=== PATIENT | female | born 1980 | race Caucasian/White ===

== ENCOUNTER → 2017-01-04 | Outpatient (CLI) | payer MEDICAID ==
--- NOTE | 2017-01-04 08:48 | CT ---
EXAMINATION TYPE: CT abdomen pelvis w con DATE OF EXAM: 01/04/2017 HISTORY: RLQ pain and swelling, worse after eating. CT DLP: 1053mGycm Automated Exposure Control for Dose Reduction was Utilized. CONTRAST: CT scan of the abdomen and pelvis is performed with oral and with IV Contrast, patient injected with 100 mL of Omnipaque 300. COMPARISON: CT abdomen July 02, 2014 FINDINGS: LUNG BASES: No significant abnormality is appreciated. LIVER/GB: Cholecystectomy clips are redemonstrated. PANCREAS: Pancreas is diffusely prominent without surrounding inflammatory change or abnormal enhance ment, unchanged in appearance from prior study. SPLEEN: No significant abnormality is seen. ADRENALS: No significant abnormality is seen. KIDNEYS: No significant abnormality is seen. BOWEL: Oral contrast reaches level of the rectum. There is no suspicious small or large bowel dilatat ion. There is low lying cecum. Appendix is within normal limits in the right pelvis seen best on aby nal image 40. Terminal ileum is within normal limits. There is mild wall thickening of ileal loop in the right pelvis near level of right ovary seen best coronal image 47 and axial image 70, focal enter itis at this level needs to BE considered. Occasional diverticula in distal colon is present without CT evidence for acute diverticulitis. UTERUS/ADNEXA: Multiple pelvic phleboliths are redemonstrated. Uterus is anteverted in shape and with in normal limits in size. There is some prominence of the tissue at level of the cervix. Correlate wi th direct pelvic physical exam and recent Pap smear. Both ovaries are present and not suspiciously en larged. There is cystic change in the right ovary noted. LYMPH NODES: No greater than 1cm abdominal or pelvic lymph nodes are appreciated. There are prominent but subcentimeter retroperitoneal lymph nodes in the aortocaval region redemonstrated felt stable. OSSEOUS STRUCTURES: There is mild disc space narrowing with small posterior disc herniation L5-S1 lev el. OTHER: No significant additional abnormality is seen. IMPRESSION: No CT evidence for acute appendicitis. Possible small focal enteritis distal ileal loop r ight upper pelvis, differential includes infectious and/or inflammatory etiologies.
== END | disposition home or self-care (01) ==
LOC: RADCTMAIN 07:55
PROVIDERS: ATTEND Surgery
DX: R10.9 Unspecified abdominal pain (principal)
CPT/HCPCS: 74177; Q9967

== ENCOUNTER → 2017-01-15 | Outpatient (CLI) | payer MEDICAID ==
--- NOTE | 2017-01-15 11:55 | US ---
EXAMINATION TYPE: US carotid duplex BILAT DATE OF EXAM: 01/15/2017 COMPARISON: NONE CLINICAL HISTORY: Unilateral Swelling R22.0. history of thoracic outlet syndrome with surgery one yea r ago, patient having left neck swellling. EXAM MEASUREMENTS: RIGHT: Peak Systolic Velocity (PSV) cm/sec ----- Right CCA: 73.8 ----- Right ICA: 103.0 ----- Right ECA: 86.2 ICA/CCA ratio: 1.4 RIGHT: End Diastole cm/sec ----- Right CCA: 28.4 ----- Right ICA: 62.9 ----- Right ECA: 28.0 LEFT: Peak Systolic Velocity (PSV) cm/sec ----- Left CCA: 72.1 ----- Left ICA: 99.6 ----- Left ECA: 85.3 ICA/CCA ratio: 1.4 LEFT: End Diastole cm/sec ----- Left CCA: 31.4 ----- Left ICA: 54.5 ----- Left ECA: 27.0 VERTEBRALS (direction of flow): Right Vertebral: Antegrade Left Vertebral: Antegrade No significant stenosis seen, no elevated velocities. Also scanned left IJV, which is patent and comp ressible. Grayscale images show no significant focal plaque at carotid bulb level bilaterally. IMPRESSION: No hemodynamically significant stenosis is seen in either internal carotid artery.
== END | disposition home or self-care (01) ==
LOC: RADUSWWP 10:43
PROVIDERS: ATTEND Surgery
DX: R22.0 Localized swelling, mass and lump, head (principal); R53.1 Weakness; Z98.890 Other specified postprocedural states
CPT/HCPCS: 93880

== ENCOUNTER → 2017-01-31 | Outpatient (CLI) | payer MEDICAID | END | disposition home or self-care (01) | LOC: LABWHC1 07:01 | DX: Z53.9 Procedure and treatment not carried out, unspecified reason (principal); D35.00 Benign neoplasm of unspecified adrenal gland; E55.9 Vitamin D deficiency, unspecified; I10 Essential (primary) hypertension; D51.0 Vitamin B12 deficiency anemia due to intrinsic factor deficiency; E06.3 Autoimmune thyroiditis; E78.00 Pure hypercholesterolemia, unspecified ==

== ENCOUNTER → 2017-02-17 | Outpatient (CLI) | payer MEDICAID ==
[2017-02-17 09:47] LABS: ALT 37 U/L (9-52); Anion Gap 11 mmol/L; Blood Urea Nitrogen 13 mg/dL (7-17); Calcium 9.5 mg/dL (8.4-10.2); Carbon Dioxide 25 mmol/L (22-30); Chloride 106 mmol/L (98-107); Cholesterol 195 mg/dL (<200); HDL Cholesterol 47 mg/dL (40-60); Iron 106 ug/dL (37-170); Non-African American GFR(MDRD) >60 (>60 ml/min/1.73 sqM); Sodium 142 mmol/L (137-145); Triglycerides 137 mg/dL (<150)
[2017-02-17 09:58] LABS: Total Iron Binding Capacity 324 ug/dL (265-497)
[2017-02-17 10:37] LABS: Vitamin B12 385 pg/mL (239-931)
[2017-02-19 14:13] LABS: Thyroid Stim Immun Quant <0.10 IU/L (<0.10)
== END | disposition home or self-care (01) ==
LOC: LABWHC1 07:20
PROVIDERS: ATTEND Internal Medicine Endocrinology, Diabetes & Metabolism
DX: D35.00 Benign neoplasm of unspecified adrenal gland (principal); E03.9 Hypothyroidism, unspecified; I10 Essential (primary) hypertension; D51.0 Vitamin B12 deficiency anemia due to intrinsic factor deficiency; E06.3 Autoimmune thyroiditis; E78.00 Pure hypercholesterolemia, unspecified
CPT/HCPCS: 36415; 80051; 80061; 82088; 82306; 82310; 82565; 82607; 82728; 83540; 83550; 83835; 84244; 84439; 84443; 84445; 84460; 84481; 84520; 86376

== ENCOUNTER → 2017-12-05 | Outpatient (CLI) | payer MEDICAID ==
[2017-12-05 17:51] LABS: HCT 38.6 % (34.0-46.0); HGB 13.1 gm/dL (11.4-16.0); MCH 30.3 pg (25.0-35.0); MCHC 33.9 g/dL (31.0-37.0); MCV 89.4 fL (80.0-100.0); Mean Platelet Volume 6.9; Platelet Count 292 k/uL (150-450); RBC 4.31 m/uL (3.80-5.40); RDW 12.7 % (11.5-15.5); WBC 7.2 k/uL (3.8-10.6)
[2017-12-05 17:59] LABS: Anion Gap 13 mmol/L; Blood Urea Nitrogen 18 mg/dL (7-17); Carbon Dioxide 25 mmol/L (22-30); Chloride 103 mmol/L (98-107); Glucose 81 mg/dL (74-99); Potassium 4.2 mmol/L (3.5-5.1); Sodium 141 mmol/L (137-145)
[2017-12-05 18:14] LABS: Eosinophils # (M) 0.14 k/uL (0-0.7); Lymphocytes # (M) 2.95 k/uL (1.0-4.8); Monocytes # (M) 0.43 k/uL (0-1.0); Neutrophils # (M) 3.67 k/uL (1.3-7.7); Neutrophils % (M) 51 %; Nucleated Red Blood Cells 0 /100 WBC (0-0); Polychromasia Present; Total Cells Counted 100
== END | disposition home or self-care (01) ==
LOC: LABPAT 16:18
PROVIDERS: ATTEND Obstetrics & Gynecology
DX: Z01.812 Encounter for preprocedural laboratory examination (principal); E80.20 Unspecified porphyria
CPT/HCPCS: 36415; 80051; 82565; 82947; 84520; 85025; 86850; 86900; 86901; 87086

== ENCOUNTER 2017-12-10 05:52 | Observation (INO) | payer MEDICAID ==
[2017-12-05 16:36] VITALS: BMI 24.3
--- NOTE | 2017-12-06 15:26 | HP ---
HISTORY AND PHYSICAL DATE OF PROCEDURE: 12/10/2017. HISTORY: This is a 37-year-old 3, para 1-1-1-2 woman with a history significant for acute porphyria. Over the past year she has had several significant flares of her acute porphyria which include malignant hypertension, abdominal pain, and confusion. She has a significant hormonal component and her medical specialists believe that she would benefit from a hysterectomy with bilateral salpingo-oophorectomy. There is a family history of porphyria and her mother did have significant improvement in her symptoms following hysterectomy. After careful consideration, she would like to proceed with robotic assisted laparoscopic assisted vaginal hysterectomy and bilateral salpingo-oophorectomy. ALLERGIES: None. 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 PAST MEDICAL HISTORY: Hypothyroidism and acute porphyria. PAST SURGICAL HISTORY: Abdominoplasty 2009, breast biopsy 2011, cholecystectomy 2002, endometrial ablation procedure and tubal ligation in 2012. 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 She has had a tubal ligation. SOCIAL HISTORY: She is . Negative for tobacco, alcohol, or drug use. 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 FAMILY HISTORY: Significant for porphyria in her mother as well as diabetes in her mother and father, grandmother and aunt. Aunt with melanoma. Mother, father, and grandparents with hypertension. REVIEW OF SYSTEMS: Negative for recent weight gain, weight loss, fevers, chills, headaches, visual changes, nausea, vomiting, diarrhea, constipation, abdominal or pelvic pain. PHYSICAL EXAM: Blood pressure 130/80, heart rate 71, weight 161 pounds, height 5 feet 6 inches and 3/4. HEENT exam is unremarkable with no palpable lymphadenopathy or thyromegaly. Lungs are clear to auscultation bilaterally. Heart is of regular rate and rhythm without murmur. Abdomen is soft and nontender with no rebound, no guarding and no flank pain. On pelvic examination done previously is significant for normal female external genitalia without lesions or irritation. The cervix is multiparous and she has a grade 2 cystocele and rectocele. Uterus is freely mobile and not enlarged. No adnexal abnormalities appreciated. ASSESSMENT: A 37-year-old 3, para 2 woman with history of acute porphyria exacerbated by hormonal cycles. She is scheduled to undergo a robotic assisted laparoscopic assisted vaginal hysterectomy with bilateral salpingo-oophorectomy. Alternatives, risks and benefits of this procedure have been reviewed with the patient in the office setting in detail. Risks include, but are not limited to bleeding, transfusion, infection, damage to bowel, bladder, ureters and/or other intraabdominal or pelvic structures. She understands there is a risk associated with the anesthetic. She understands risk of DVT or PE. Hospitalist will be consulted to follow along her case and monitor closely for a sequelae of her acute porphyria which can include malignant hypertension. She is scheduled to undergo the above-named procedure on in 12/10/2017. MMODL / IJN: [id number] /
[~2017-12-10 05:52] MED LIST: DEXAMETHASONE SOD PHOSPHATE 10 MG/ML 1 ML VIAL IV ONE; MIDAZOLAM 2 MG/2 ML VIAL IV PRN; ONDANSETRON 4 MG/2 ML VIAL IVP ONE; SCOPOLAMINE 1.5MG/72HR PATCH TRANSDERM ONE
[2017-12-10] MEDS ORDERED: ceFAZolin IN SWFI 2 GM/20 ML SYRINGE IVP ONE (06:00)
[2017-12-10] MEDS: LACTATED RINGERS 1,000 ML IV SCH (06:46)
[2017-12-10] MEDS ORDERED: LIDOCAINE 1% 20 ML VIAL (10MG/ML) FOR IV START INTRADERMA ONE ×2 (06:47→06:48)
[2017-12-10] MEDS: DEXTROSE 5%-0.45% NACL 1,000 ML IV ONE ×2 (07:22→12:21)
[2017-12-10] MEDS ORDERED: DEXTROSE 5%-0.45% NACL 1,000 ML IV ONE (07:23)
[2017-12-10] MEDS ORDERED: ROCURONIUM BROMIDE 10 MG/ML 10 ML VIAL IV ONE (07:30)
[2017-12-10] MEDS ORDERED: NEOSTIGMINE 1 MG/ML 10 ML VIAL ONE (07:30)
[2017-12-10] MEDS ORDERED: MIDAZOLAM 2 MG/2 ML VIAL ONE (07:30)
[2017-12-10] MEDS ORDERED: ePHEDrine SULFATE/0.9% NACL/PF 50 MG/5 ML SYRINGE IV ONE (07:30)
[2017-12-10] MEDS ORDERED: LIDOCAINE 1% INJ 10MG/ML (20 ML MDV) ONE (07:30)
[2017-12-10] MEDS ORDERED: PROPOFOL 10 MG/ML 20 ML VIAL IV ONE (07:30)
[2017-12-10] MEDS ORDERED: GLYCOPYRROLATE 0.2 MG/ML 2 ML VIAL ONE (07:30)
[2017-12-10] MEDS ORDERED: fentaNYL (PF) 50 MCG/ML 2 ML AMP ONE (07:30)
[2017-12-10] MEDS ORDERED: BUPIVACAINE (PF) 0.5% 30 ML VIAL SQ ONE ×2 (08:04)
--- NOTE | 2017-12-10 09:57 | P.OP ---
Date of Procedure: 12/10/17 Preoperative Diagnosis: Acute porphyria Postoperative Diagnosis: Acute porphyria Right paratubal cyst Procedure(s) Performed: Robotic-assisted laparoscopic assisted vaginal hysterectomy with bilateral salpingo-oophorectomy and cystoscopy Anesthesia: SHARRON Surgeon: Elizabeth Pace Can Dragger #1: Bonita Valenzuela Estimated Blood Loss (ml): 25 IV fluids (ml): 1,150 Urine output (ml): 400 Pathology: other (Uterus, bilateral ovaries and fallopian tubes) Condition: stable Disposition: PACU Indications for Procedure: Acute porphyria with the cyclic, hormone mediated exacerbations. Operative Findings: Uterus with anterior subserosal fibroid. Approximate 3 cm simple right paratubal cyst. Bilateral fallopian tubes and ovaries otherwise grossly normal. Intra-abdominal inspection grossly normal. Normal appendix. Description of Procedure: After the patient and her family members were met in the preoperative holding area and all questions were answered, she was taken to the operating room where anesthetic was administered without incident. She was in positioned, prepped and draped in the dorsal lithotomy position. Adorno catheter was placed in the vagina. Speculum was placed in the vagina and the cervix was grasped anteriorly with single-tooth tenaculum. Uterus was sounded to 9 cm. The cervix was then sequentially dilated to allow for insertion of the uterine manipulator. This was inserted per product protocol and the balloon was inflated with approximately 8 mL of air. Attention was then turned to the abdomen. Gloves were changed. The anterior abdominal wall was elevated and a 7 mm supraumbilical skin incision was made. Varies needle was inserted without difficulty and saline drop test indicated intraperitoneal placement. Initial filling pressure was 5 mm. The abdomen was insufflated to a total filling pressure of 15 mm with CO2 gas. Varies needle was removed and the optical trocar was then used to introduce the camera under direct visualization. Camera was inserted without difficulty and the patient was placed in steep Trendelenburg. The bowel was swept out of the pelvis in the pelvis was inspected and the above findings were noted. Under direct visualization the left and right 7 mm da Lizett ports were placed as well as a 10 mm right upper quadrant clothing sales assistant port. The da Lizett device was then docked without difficulty and instruments were introduced. Arm 1 had monopolar mariela and arm 2 had bipolar [place] graspers. Robotic assistance portion of the procedure then was initiated. The right fallopian tube was grasped. There was a right paratubal cyst noted. The right infundibular pelvic ligament was identified as was the course of the right ureter. The right IP was then sequentially cauterized and cut. The right round ligament was then sequentially cauterized and cut. The anterior leaf of the broad ligament was then entered and incised anteriorly to the level of the bladder. The uterine vasculature was then skeletonized. This was sequentially cauterized. Attention was then turned to the left side. Similarly the left infundibulopelvic ligament and course of the left ureter were identified. The left infundibulopelvic ligament was sequentially cauterized and cut. The left round ligament was sequentially cauterized and cut. The anterior leaf of the broad ligament was incised to meet with the previous incision from the right side. The bladder was then gently and bluntly dissected away anteriorly. The left uterine vasculature was somewhat tortuous however was cauterized and cut. The colpotomy was then made anteriorly and carried around initially to the right. At this point there was some difficulty with visualization secondary to loss of pneumothorax this was addressed with improvement of visualization. The colpotomy was then extended circumferentially allowing for delivery of the uterus into the vagina. There was a portion of the cervix that remains anteriorly and this was grasped and removed using the electrocautery. That was also removed through the vagina. The vaginal cuff was then inspected. Instruments were exchanged and the grasper and needle interstate bus driver were introduced. Stratus 6-0 Vicryl self locking suture was utilized to close the cuff in a running fashion. The cuff was copiously suction irrigated. FloSeal was placed prophylactically along the suture line for additional hemostasis. The right and left IP surgical sites were inspected and noted to be hemostatic. Attention was then turned to the cystoscopy. The 30 diagnostic cystoscope was introduced after removal of the Adorno catheter. No blood or suture material was noted in the bladder. The right and left ureteral orifices were easily visualized and noted to be actively spilling urine bilaterally. Cystoscope was removed and the Adorno catheter was replaced. Vaginal cuff was inspected and no active bleeding was noted. The robot was undocked from the patient and the abdomen was desufflated of CO2 gas. Ports were removed. Skin was closed at the 4 port sites using 4-0 Vicryl suture in a subcuticular fashion. Marcaine was infused in each of the incision sites. Dressings were applied. All counts reported to me as correct by the operating room staff and the patient was awoken from anesthetic and transferred to the recovery area in good condition.
[2017-12-10] MEDS: fentaNYL (PF) 50 MCG/ML 2 ML AMP IV PRN ×4 (10:30→11:00)
[2017-12-10] MEDS ORDERED: ONDANSETRON 4 MG/2 ML VIAL IVP ONE (11:05)
[2017-12-10] MEDS ORDERED: ONDANSETRON 4 MG/2 ML VIAL IVP PRN (11:33)
[2017-12-10] MEDS ORDERED: ACETAMINOPHEN IV (For NPO) 1,000 MG in EMPTY BAG 1 BAG IVPB ONE (11:33)
[2017-12-10] MEDS ORDERED: IBUPROFEN 600 MG TAB PO PRN (11:33)
[2017-12-10] MEDS ORDERED: Acetaminophen-Codeine 300-30mg TAB PO PRN ×2 (11:33)
[2017-12-10] MEDS ORDERED: SIMETHICONE 80 MG CHEWABLE PO PRN (11:33)
[2017-12-10] MEDS ORDERED: SENNOSIDES-DOCUSATE SODIUM 1 EACH TAB PO PRN (11:33)
[2017-12-10] MEDS ORDERED: ACETAMINOPHEN IV (For NPO) 1,000 MG in EMPTY BAG 1 BAG IVPB PRN (11:57)
[2017-12-10] MEDS: METOCLOPRAMIDE 5 MG/ML 2 ML VIAL IVP PRN ×2 (12:22→18:26)
[2017-12-10] MEDS: KETOROLAC 30 MG/ML 1 ML VIAL IVP PRN ×2 (14:10→19:58)
[2017-12-10] MEDS ORDERED: THYROID, PORK 30 MG TAB PO SCH (15:00)
[2017-12-10] MEDS: diphenhydrAMINE 50 MG/ML 1 ML VIAL IVP PRN (19:00)
[2017-12-10 20:17] VITALS: RESP 16
[2017-12-10] MEDS: DEXTROSE 5%-0.9% NACL 1,000 ML IV SCH ×2 (20:19→23:27)
[2017-12-10 23:19] VITALS: TEMP 99.1
[2017-12-11] MEDS: diphenhydrAMINE 50 MG/ML 1 ML VIAL IVP PRN (00:20)
[2017-12-11] MEDS ORDERED: THYROID, PORK 30 MG TAB PO SCH (06:30)
[2017-12-11 08:13] LABS: Basophils % (A) 0 %; Eosinophils % (A) 0 %; HCT 38.5 % (34.0-46.0); HGB 12.5 gm/dL (11.4-16.0); Lymphocytes # (A) 1.8 k/uL (1.0-4.8); Lymphocytes % (A) 13 %; MCH 29.9 pg (25.0-35.0); MCHC 32.4 g/dL (31.0-37.0); MCV 92.5 fL (80.0-100.0); Monocytes # (A) 1.3 k/uL (0-1.0); Monocytes % (A) 10 %; Neutrophils # (A) 9.8 k/uL (1.3-7.7); Neutrophils % (A) 74 %; Platelet Count 269 k/uL (150-450); RBC 4.16 m/uL (3.80-5.40); WBC 13.3 k/uL (3.8-10.6)
--- NOTE | 2017-12-11 08:42 | P.DS ---
Providers Date of admission: 12/10/17 19:47 Expected date of discharge: 12/11/17 Attending physician: Elizabeth aPce Primary care physician: Stated None - Discharge Diagnosis(es) (1) Acute intermittent porphyria Current Visit: Yes Status: Acute (2) Fibroid uterus Current Visit: Yes Status: Acute (3) Paratubal cyst Current Visit: Yes Status: Acute Hospital Course: This is a 37-year-old woman with a history of acute porphyria with hormonal exacerbation. She was admitted for definitive surgical management. She underwent a robotic-assisted laparoscopic assisted vaginal hysterectomy with bilateral salpingo-oophorectomy and cystoscopy. Findings at the time of surgery were remarkable for a small anterior fundal uterine fibroid and an approximately 3 cm simple right paratubal cyst. Please see the operative report for details. Initially her pain was managed with IV from which transition to oral Motrin. By the evening of postoperative day 0 her Adorno catheter was removed and she was able to ambulate and void without difficulty. She was able to tolerate a general diet. By the morning of postoperative day # 1 she continued to do well with stable vital signs and reasonable pain management with oral pain medications. Her incisions appear to be well healing and she has minimal vaginal bleeding. She is complaining of some mild hot flashes. Postoperative labs are pending. She is discharged home with instructions for follow-up in 2 weeks postoperatively Procedures: Robotic-assisted operative scope assisted vaginal hysterectomy with bilateral salpingo-oophorectomy and cystoscopy Patient Condition at Discharge: Good Plan - Discharge Summary Discharge Rx Participant: Yes New Discharge Prescriptions: New Estradiol [Estradiol 0.1 MG Patch] 1 patch TRANSDERM Q7DAYS #4 patch No Action buPROPion HCL [Wellbutrin XL] 300 mg PO DAILY Thyroid,Pork [Vba Programmer Thyroid] 60 mg PO DAILY@1500 Thyroid,Pork [Vba Programmer Thyroid 120] 90 mg PO QAM Discharge Medication List Thyroid,Pork [Vba Programmer Thyroid 120] 90 mg PO QAM 12/05/17 [History] Thyroid,Pork [Vba Programmer Thyroid] 60 mg PO DAILY@1500 12/05/17 [History] buPROPion HCL [Wellbutrin XL] 300 mg PO DAILY 12/05/17 [History] Estradiol [Estradiol 0.1 MG Patch] 1 patch TRANSDERM Q7DAYS #4 patch 12/11/17 [ Rx] Follow up Appointment(s)/Referral(s): Elizabeth Pace MD [STAFF PHYSICIAN] - 2 Weeks Activity/Diet/Wound Care/Special Instructions: Follow-up in the office in 2 weeks postoperatively. May use [id number] Motrin 600 mg every 6 hours as needed for pain and or Tylenol Extra Strength 1 or 2 tabs every 8 hours as needed for pain. Call the office with any concerning signs or symptoms including heavy vaginal bleeding, foul vaginal discharge, redness or drainage from the abdominal incisions, severe abdominal or pelvic pain, redness or swelling of the lower extremities. Nothing in the vagina, no intercourse for 8 weeks postoperatively. Discharge Disposition: HOME SELF-CARE
[2017-12-11] MEDS ORDERED: buPROPion XL 300 MG TAB.ER.24H PO SCH (09:00)
[2017-12-11 11:29] VITALS: BP 109/63; PULSE 99
== END 2017-12-11 11:15 | disposition home or self-care (01) ==
LOC: OR 05:52 → 4FBP 09:42 → OR 19:47
PROVIDERS: ADMIT Obstetrics & Gynecology; ATTEND Obstetrics & Gynecology
DX: E80.21 Acute intermittent (hepatic) porphyria (principal); D25.2 Subserosal leiomyoma of uterus; N83.02 Follicular cyst of left ovary; N83.8 Other noninflammatory disorders of ovary, fallopian tube and broad ligament; E03.9 Hypothyroidism, unspecified; E89.41 Symptomatic postprocedural ovarian failure; Z79.890 Hormone replacement therapy; Z79.899 Other long term (current) drug therapy; Z98.51 Tubal ligation status; Z90.49 Acquired absence of other specified parts of digestive tract; Z83.2 Family history of diseases of the blood and blood-forming organs and certain disorders involving the immune mechanism; Z83.3 Family history of diabetes mellitus; Z82.49 Family history of ischemic heart disease and other diseases of the circulatory system
CPT/HCPCS: 58552; S2900; 81025; 85025; 86850; 86900; 86901; 88307